=== PATIENT | female | born 1980 | race Caucasian/White ===

== ENCOUNTER → 2019-05-08 | Outpatient (CLI) | payer OTHER ==
--- NOTE | 2019-05-08 16:39 | RAD ---
Ultrasound of the right upper quadrant of the abdomen 05/08/2019 CLINICAL HISTORY: Right upper quadrant abdominal pain. Nausea. TECHNIQUE: A real-time ultrasound examination of the right upper quadrant of the abdomen was performed. Multiple images were obtained. FINDINGS: Echogenic gallstones are seen within the gallbladder. The gallbladder is slightly contracted. The gallbladder wall thickness is within normal limits. No pericholecystic fluid is seen. The common bile duct measures 4 mm in diameter which is within normal limits. The liver is normal in size and echogenicity. It measures 12.3 cm in length. The visualized portions of pancreas and right kidney are within normal limits. No free fluid is seen. IMPRESSION: Cholelithiasis. Otherwise negative study. Electronically signed by: Al Valero MD (05/08/2019 4:36 PM) [id number]
== END | disposition home or self-care (01) ==
LOC: US 15:55
PROVIDERS: ATTEND Physician Assistant Medical
DX: K80.21 Calculus of gallbladder without cholecystitis with obstruction (principal)
CPT/HCPCS: 76705